=== PATIENT | male | born 1955 | race Caucasian/White ===

== ENCOUNTER → 2018-02-05 | Outpatient (CLI) | payer OTHER ==
[2018-02-07 11:36] LABS: Codeine Not Detected (NOTDET); Hydrocodone Not Detected (NOTDET); Hydromorphone Not Detected (NOTDET); Morphine Not Detected (NOTDET); Norhydrocodone Not Detected (NOTDET); Noroxycodone Not Detected (NOTDET)
[2018-02-07 12:26] LABS: Phencyclidine by GC/MS Not Detected (NOTDET)
[2018-02-07 12:32] LABS: MDA Not Detected (NOTDET); MDEA Not Detected (NOTDET); MDMA Not Detected (NOTDET)
[2018-02-07 20:01] LABS: Methadone Metab. by GC/MS Not Detected (NOTDET)
[2018-02-07 21:45] LABS: Alpha Hyrdroxyalprazolam Not Detected (NOTDET); Alpha hydroxytriazolam Not Detected (NOTDET); Alprazolam Not Detected (NOTDET); Confirm Clonazepam LC/MS Not Detected (NOTDET); Confirm Flunitrazepam LC/MS Not Detected (NOTDET); Diazepam Not Detected (NOTDET); Flurazepam Not Detected (NOTDET); Lorazepam 460.2 ng/mL (NOTDET); Midazolam Not Detected (NOTDET); Temazepam Not Detected (NOTDET)
[2018-02-08 00:19] LABS: Amobarbital by GC/MS Not Detected (NOTDET); Butalbital by GC/MS Not Detected (NOTDET); Pentobarbital by GC/MS Not Detected (NOTDET); Phenobarbital by GC/MS Not Detected (NOTDET); Secobarbital by GC/MS Not Detected (NOTDET)
[2018-02-08 01:11] LABS: Cocaine Metabolites by GC/MS Not Detected (NOTDET)
== END ==
LOC: LAB SHORT 12:01 → LAB 12:01
PROVIDERS: Family Medicine
DX: F41.9 Anxiety disorder, unspecified (principal)
CPT/HCPCS: G0480

== ENCOUNTER 2018-10-16 12:38 | Emergency (ER) | payer MEDICARE, OTHER ==
[~2018-10-16] VITALS: Ht 167.6 cm; Wt 63.5 kg
[2018-10-16 13:35] LABS: BASOPHILS ABSOLUTE AUTO 0.03 K/mm3 (0.00-0.23); BASOPHILS PERCENT AUTO 0 % (0-2); EOSINOPHILS ABSOLUTE AUTO 0.05 K/mm3 (0.00-0.68); EOSINOPHILS PERCENT AUTO 1 % (0-6); Hematocrit 43.6 % (37.0-53.0); Hemoglobin 14.3 g/dL (13.5-17.5); IMMATURE GRAN ABSOLUTE AUTO 0.02 K/mm3 (0.00-0.10); IMMATURE GRAN PERCENT AUTO 0 % (0-1); LYMPHOCYTES ABSOLUTE AUTO 1.67 K/mm3 (0.84-5.20); LYMPHOCYTES PERCENT AUTO 24 % (21-46); MONOCYTES ABSOLUTE AUTO 1.28 K/mm3 (0.16-1.47); MONOCYTES PERCENT AUTO 18 % (4-13); Mean Corpuscular HGB Conc 32.8 g/dL (31.5-36.5); Mean Corpuscular Volume 92 fL (80-100); Mean Platelet Volume 9.6 fL (9.1-12.4); NEUTROPHILS ABSOLUTE AUTO 4.01 K/mm3 (1.96-9.15); NEUTROPHILS PERCENT AUTO 57 % (41-73); Platelet Count 276 K/mm3 (150-400); RDW Coefficient Variation 13.5 % (11.7-14.2); RDW Standard Deviation 46.1 fL (35.1-46.3); Red Blood Cell Count 4.76 M/mm3 (4.30-5.90); White Blood Cell Count 7.06 K/mm3 (4.00-11.30)
[2018-10-16 14:02] LABS: Albumin, Blood 3.5 g/dL (3.4-5.0); Albumin/Globulin Ratio 0.8 (0.8-1.8); Bilirubin, Total 0.3 mg/dL (0.1-1.0); Bun/Creatinine Ratio 15.8 (12.0-20.0); Calcium, Blood 9.1 mg/dL (8.5-10.1); Creatinine, Blood 2.73 mg/dL (0.60-1.20); Globulin, Blood 4.6 g/dL (2.2-4.0); Potassium, Blood 4.4 mmol/L (3.5-5.5); Total Protein, Blood 8.1 g/dL (6.4-8.2)
[2018-10-16] MEDS ORDERED: HYDCHL25 PO (15:16)
[2018-10-16] MEDS ORDERED: Omeprazole20 M1 (15:16)
[2018-10-16 15:17] LABS: Source, Urine Clean Catch
[2018-10-16] MEDS ORDERED: TRAZ50 PO (15:17)
[2018-10-16] MEDS ORDERED: LORA.5 PO (15:17)
[2018-10-16] MEDS ORDERED: GABA300 PO (15:17)
[2018-10-16] MEDS ORDERED: CARV25 PO (15:18)
[2018-10-16] MEDS ORDERED: LOSARTAN POTAS100 MG PO (15:18)
[2018-10-16] MEDS ORDERED: AMLO5 PO (15:19)
[2018-10-16 15:26] LABS: Appearance, Urine Clear (Clear); Bilirubin, Urine Neg (Neg); Blood, Urine Neg (Neg); Color, Urine Yellow (P-Yellow); Glucose Qualitative, Urine Neg (Neg); Ketones, Urine Neg (Neg); Leukocyte Esterase, Urine Neg (Neg); Nitrite, Urine Neg (Neg); Protein, Urine 3+ (Neg); Urobilinogen, Urine NORM (Normal)
[2018-10-16 15:49] LABS: Hyaline Casts 0-2 /lpf (0-2)
[2018-10-16 15:50] LABS: Bacteria Not Seen /hpf; Red Blood Cells, Urine Not Seen /hpf (0-2); Squamous Epithelial Cells Not Seen /hpf (Few); Transitional Epithelial Cells Rare /hpf (0-Rare); White Blood Cells, Urine 0-2 /hpf (0-5)
[2018-10-16] MEDS ORDERED: Norco 5-325 Ta1 EACH PO (17:13)
[2018-10-16] MEDS ORDERED: ONDA4ODT MM (17:13)
== END 2018-10-16 17:40 | disposition home or self-care (01) ==
LOC: ER 12:38
PROVIDERS: Emergency Medicine
DX: M53.3 Sacrococcygeal disorders, not elsewhere classified (principal); N18.3 Chronic kidney disease, stage 3 (moderate); Z79.899 Other long term (current) drug therapy
CPT/HCPCS: 36415; 74176; 80053; 81001; 83690; 85025; 96374; 96375; 96376; 99284-25; J1100; J2405; J3010

== ENCOUNTER 2019-03-27 07:38 | Day surgery (SDC) | payer MEDICARE, OTHER ==
[~2019-03-27] VITALS: Ht 167.6 cm; Wt 59.3 kg
[~2019-03-27 07:38] MED LIST: AMLO5 PO; CARV25 PO; GABA300 PO; HYDCHL25 PO; LORA.5 PO; LOSARTAN POTAS100 MG PO; Norco 5-325 Ta1 EACH PO; ONDA4ODT MM; Omeprazole20 M1 PO; TRAZ50 PO
--- NOTE | 2019-03-27 08:34 | NUR ---
INTO [facility] VSS. ADMISSION TO UNIT STARTED CONFIRMS NPO.
--- NOTE | 2019-03-27 10:33 | NUR ---
PT ARRIVED FROM OR 2 VIA GURNEY. VSS. DRESSING TO L INGUINAL INCISION CDI. MELODY LEZAMA RN GAVE REPORT REGARDING PT RECEIVING LEFT TAP BLOCK AND 10CC LOCAL MARCAINE TO DECREASE PAIN. PT WAKING, COUGHING, REPOSTIIONED. DROWSY AT TIME OF TRANSFER OF CARE TO ANJU HEATH RN.
--- NOTE | 2019-03-27 10:33 | NUR ---
"SPOTTER | REPORT FROM EZEQUIEL MACHADO AND DR. MERCADO Patient sitting up in bed with face tent at 10 L. A/O but sleepy."
--- NOTE | 2019-03-27 11:13 | NUR ---
Dressing to procedure site clean, dry, intact with no visible drainage, swelling, erythema or bruising noted. PT REPORTS PAIN WHEN HE COUGHS. PT DENIES N/V.
--- NOTE | 2019-03-27 11:21 | NUR ---
PT HAS BEEN ABLE TO EAT CRACKERS AND DRINK WATER AND TOLERATED WELL. PERCOCET 1 TABLET GIVEN PO.
--- NOTE | 2019-03-27 11:44 | NUR ---
Patient States Post-Procedure ride home has been arranged. Discharge instructions reviewed with patient. Patient verbalizes understanding. Copy given to patient to take home.
== END 2019-03-27 11:45 | disposition home or self-care (01) ==
LOC: ORSCMMR 07:38 → ORD 09:15 → ORSCMMR 09:15
PROVIDERS: Surgery
PROC: 0YU60JZ Supplement Left Inguinal Region with Synthetic Substitute, Open Approach (ICD-10-PCS; principal; 2019-03-27 09:15)
DX: K40.90 Unilateral inguinal hernia, without obstruction or gangrene, not specified as recurrent (principal); I12.9 Hypertensive chronic kidney disease with stage 1 through stage 4 chronic kidney disease, or unspecified chronic kidney disease; N18.3 Chronic kidney disease, stage 3 (moderate); B19.20 Unspecified viral hepatitis C without hepatic coma; Z87.891 Personal history of nicotine dependence; Z79.899 Other long term (current) drug therapy
CPT/HCPCS: C1781; J0690; J1100; J2405; J2704; J3010; J7120